=== PATIENT | female | born 1965 ===

== ENCOUNTER 2017-11-23 07:00 | Day surgery (SDC) | payer OTHER ==
[~2017-11-23] VITALS: Ht 154.9 cm; Wt 56.7 kg
== END 2017-11-23 15:00 | disposition home or self-care (01) ==
LOC: CIR.AMB 07:00 → O/R 07:00 → EDSTATUS 07:00 → O/R 13:05 → CIR.AMB 15:00
DX: M48.061 Spinal stenosis, lumbar region without neurogenic claudication (principal); M51.16 Intervertebral disc disorders with radiculopathy, lumbar region